=== PATIENT | male | born 1955 | race Caucasian/White ===

== ENCOUNTER 2019-12-04 16:22 | Emergency (ER) | payer BC, OTHER ==
[~2019-12-04] VITALS: Ht 172.7 cm; Wt 88.5 kg
[~2019-12-04 16:22] MED LIST: ASPIR 8181 M1 PO; ASPIRIN325 PO; CIPRO500 MG PO; FISH OIL 1,001000 M1 PO; HYDROCODONE-AP1 EAC6 PO; LISINOPRIL40 MG PO; MULTIVITAMINS1 EAC7 PO; NORVASC10 MG PO; PERCOCET 5-3251 EACH PO; SIMVASTATIN40 MG PO; ZOFRAN ODT4 MG PO
[2019-12-04] MEDS ORDERED: METFORMIN HCL500 M3 PO (16:33)
[2019-12-04 16:55] LABS: URINE BILIRUBIN NEGATIVE (Negative); URINE BLOOD 3+ (Negative); URINE CLARITY CLEAR; URINE COLOR YELLOW; URINE GLUCOSE-RANDOM* NEGATIVE (Negative); URINE KETONES NEGATIVE (Negative); URINE LEUKOCYTES-REFLEX TRACE (Negative); URINE NITRITE-REFLEX NEGATIVE (Negative); URINE PROTEIN (DIPSTICK) NEGATIVE (Negative); URINE SPECIFIC GRAVITY 1.015 (1.005-1.035); URINE UROBILINOGEN 0.2 E.U./dl (0.2-1.0)
[2019-12-04 17:14] LABS: BACTERIA-REFLEX 1-9 Few /HPF (None Seen); CRYSTALS None Seen /LPF (None Seen); SQUAMOUS 0-3 Few /LPF (0-3); URINE WBC-REFLEX 6-15 Few /HPF (0-5)
[2019-12-04 17:19] LABS: HYALINE CASTS 0-3 Few /LPF (None Seen)
[2019-12-04 17:42] LABS: ABSOLUTE NEUTROPHILS 8.4 thou/uL (1.4-8.2); BASOPHILS 0.5 % (0.0-2.0); EOSINOPHILS 0.7 % (0.0-3.0); HEMOGLOBIN 15.1 gm/dL (14.0-18.0); LYMPHOCYTES 13.9 % (24.0-44.0); MCH 31.8 pg (26.0-34.0); MCHC 34.3 g/dL (28.0-37.0); MCV 92.9 fL (80.0-100.0); MONOCYTES 7.1 % (1.0-8.0); PLATELET COUNT 197 thou/uL (150-400); POLYS 77.8 % (36.0-66.0); RBC 4.74 mil/uL (4.50-6.00); RDW 13.9 % (10.5-14.5); WBC 10.8 thou/uL (4.0-11.0)
[2019-12-04 18:01] LABS: CALCIUM 8.8 mg/dL (8.5-10.1); CREATININE 1.6 mg/dL (0.7-1.3); POTASSIUM 4.4 mmol/L (3.5-5.1)
[2019-12-04] MEDS ORDERED: KEFLEX500 M1 PO (19:06)
[2019-12-04] MEDS ORDERED: ZOFRAN ODT4 MG PO (19:06)
[2019-12-04 19:24] VITALS: BP 120/76
== END 2019-12-04 19:27 | disposition home or self-care (01) ==
LOC: ER 16:22
PROVIDERS: Emergency Medicine
DX: R11.10 Vomiting, unspecified (principal); I10 Essential (primary) hypertension; E78.00 Pure hypercholesterolemia, unspecified; Z79.899 Other long term (current) drug therapy; Z87.442 Personal history of urinary calculi